=== PATIENT | female | born 1960 | race Caucasian/White ===

== ENCOUNTER 2021-04-10 09:15 | Outpatient (CLI) | payer BC, SELFPAY ==
--- NOTE | 2021-04-10 09:32 | XR_ITS ---
WS: [id number] SCREENING DEXA SCAN [place] CLINICAL INFORMATION: POST MENOPAUSAL COMPARISON: None. FINDINGS: The L1-L4 bone mineral density measures 1.126 g/cm2. This corresponds to a T score score of -0.4 and Z score of 0.2. Left femoral neck bone mineral density measures 0.917 g/cm2. This corresponds to a T score of -0.7 an d Z score of -0.2. Right femoral neck bone mineral density measures 0.982 g/cm2. This corresponds to a T score -0.2of an d Z score of 0.3. Mean femoral neck bone mineral density measures 0.950 g/cm2. This corresponds to a T score of -0.5 an d Z score of 0.1. XR/XR DEXA axial skeleton* 07000 IMPRESSION: Normal bone mineralization. Patient's FRAX calculated 10 year probability for major osteoporotic fracture i s 14.2 % and osteoporotic hip fracture is 1.5%.
== END 2021-04-10 09:16 | disposition home or self-care (01) ==
LOC: RAD 09:21
PROVIDERS: PCP Internal Medicine; Visit Provider Internal Medicine
DX: Z78.0 Asymptomatic menopausal state (principal)
CPT/HCPCS: 77080

== ENCOUNTER 2023-02-27 09:39 | Outpatient (CLI) | payer BC, SELFPAY ==
--- NOTE | 2023-02-27 09:43 | MM_ITS ---
WS: [id number] BILATERAL 3D TOMOSYNTHESIS DIGITAL DIAGNOSTIC MAMMOGRAPHY WITH CAD CLINICAL INFORMATION: BR LUMP HISTORY: LEFT breast mass COMPARISON: 2014 TECHNIQUE: Bilateral CC, MLO, and ML views. FINDINGS: Scattered fibroglandular densities bilaterally. Deep to the palpable marker LEFT breast is a lobulate d spiculated breast lesion with innumerable tiny pleomorphic calcifications. Irregular spiculated LEF T breast mass measures approximately 5.1 x 4.5 cm. In addition numerous partially visualized enlarged LEFT axillary lymph nodes also with pleomorphic calcifications. Findings highly suspicious for neopl asm. Ultrasound LEFT breast and axilla is pending. RIGHT breast is unremarkable. Vascular calcification. ULTRASOUND BREAST LEFT TECHNIQUE: Ultrasound left breast focused area of concern. CLINICAL INFORMATION: BR LUMP COMPARISON: None. FINDINGS: Ultrasound LEFT breast area of interest and LEFT axilla. Ultrasound LEFT breast at the 2 o'clock position 2 cm from the nipple. In the area of interest, there is a 3.0 x 2.1 x 2.1 cm irregular hypoechoic taller than wide mass suspicious for neoplasm. Irregula r lobulated borders suspicious for locally infiltrative disease. Ultrasound LEFT axilla demonstrates pathologically enlarged lobulated lymph node with associated pleo morphic calcifications measuring 3.9 x 2.2 cm with additional adjacent smaller pathologic lymph node. Recommend further evaluation ultrasound-guided biopsy of the LEFT breast mass and LEFT axilla. IMPRESSION: MM/[place] [id number] BI-RADS: 5-Highly Suggestive of Malignancy FOLLOW UP: US Guided Biopsy Recommended Recommend ultrasound-guided biopsy of the LEFT breast mass and LEFT axillary Ly mphadenopathy.
--- NOTE | 2023-02-27 09:48 | US_ITS ---
WS: [id number] BILATERAL 3D TOMOSYNTHESIS DIGITAL DIAGNOSTIC MAMMOGRAPHY WITH CAD CLINICAL INFORMATION: BR LUMP HISTORY: LEFT breast mass COMPARISON: 2014 TECHNIQUE: Bilateral CC, MLO, and ML views. FINDINGS: Scattered fibroglandular densities bilaterally. Deep to the palpable marker LEFT breast is a lobulate d spiculated breast lesion with innumerable tiny pleomorphic calcifications. Irregular spiculated LEF T breast mass measures approximately 5.1 x 4.5 cm. In addition numerous partially visualized enlarged LEFT axillary lymph nodes also with pleomorphic calcifications. Findings highly suspicious for neopl asm. Ultrasound LEFT breast and axilla is pending. RIGHT breast is unremarkable. Vascular calcification. ULTRASOUND BREAST LEFT TECHNIQUE: Ultrasound left breast focused area of concern. CLINICAL INFORMATION: BR LUMP COMPARISON: None. FINDINGS: Ultrasound LEFT breast area of interest and LEFT axilla. Ultrasound LEFT breast at the 2 o'clock position 2 cm from the nipple. In the area of interest, there is a 3.0 x 2.1 x 2.1 cm irregular hypoechoic taller than wide mass suspicious for neoplasm. Irregula r lobulated borders suspicious for locally infiltrative disease. Ultrasound LEFT axilla demonstrates pathologically enlarged lobulated lymph node with associated pleo morphic calcifications measuring 3.9 x 2.2 cm with additional adjacent smaller pathologic lymph node. Recommend further evaluation ultrasound-guided biopsy of the LEFT breast mass and LEFT axilla. IMPRESSION: US/US breast LT limited* [id number] BI-RADS: 5-Highly Suggestive of Malignancy FOLLOW UP: US Guided Biopsy Recommended Recommend ultrasound-guided biopsy of the LEFT breast mass and LEFT axillary Ly mphadenopathy.
== END 2023-02-27 09:40 | disposition home or self-care (01) ==
LOC: RAD 09:40
PROVIDERS: PCP Internal Medicine; Visit Provider Internal Medicine
DX: N63.0 Unspecified lump in unspecified breast (principal)
CPT/HCPCS: 76642; 77062; G0279

== ENCOUNTER 2023-03-19 11:47 | Outpatient (CLI) | payer BC, SELFPAY ==
--- NOTE | 2023-03-19 | US_ITS ---
WS: [id number] ULTRASOUND-GUIDED LEFT BREAST BIOPSY Ultrasound-guided LEFT AXILLARY LYMPH NODE HISTORY: LEFT breast mass and abnormal LEFT axillary adenopathy. COMPARISON: 02/27/2023 Procedure, risks and complications are explained to the patient. Medications are reviewed. Consent is obtained. The mass in the LEFT breast is localized with ultrasound. There is a large mass with posterior shadow ing at 2:00 within the LEFT breast for which biopsy is targeted. Skin is cleansed with ChloraPrep and anesthetized with 1% buffered lidocaine. Small dermatome is made. Under sterile conditions mass is b iopsied with a 14-gauge Achieve needle. Multiple core biopsies are performed. Material placed in form suni and sent to pathology for review. No complications encountered. Breast tissue marker (LiquidM ultrasound enhanced ribbon): No clip was LEFT at the request of the patien t. Abnormal LEFT axillary lymph node is identified. This is a very large abnormal lymph node. Skin is cl eansed with ChloraPrep and anesthetized with buffered lidocaine. A small dermatotomy was made. Multip le biopsies are performed of the abnormal lymph node with an 18-gauge achieve needle. No complication s. Specimen is placed in saline. No clip was LEFT in this lymph node at the request of the patient. Patient left the radiology suite with no complications. Patient is [place] [facility] [place] [facility] with any concerns. IMPRESSION: 1. Uncomplicated core needle biopsy LEFT breast mass at 2:00. US/US bx lymph breast/ax [id number] PATHOLOGY: Invasive mammary carcinoma with ductal and lobular features. Additio nal precursor lesion has been described by the pathologist. Please see entire p athology report for further details. Breast prognostic profile is pending. RECOMMENDATION: Follow-up with breast surgeon and oncology. 2. Uncomplicated core needle biopsy abnormal LEFT axillary lymph node. PATHOLOGY: Metastatic mammary carcinoma. Breast prognostic profile is pending. RECOMMENDATION: Follow-up with breast surgeon and oncology.
--- NOTE | 2023-03-19 11:53 | US_ITS ---
WS: [id number] ULTRASOUND-GUIDED LEFT BREAST BIOPSY Ultrasound-guided LEFT AXILLARY LYMPH NODE HISTORY: LEFT breast mass and abnormal LEFT axillary adenopathy. COMPARISON: 02/27/2023 Procedure, risks and complications are explained to the patient. Medications are reviewed. Consent is obtained. The mass in the LEFT breast is localized with ultrasound. There is a large mass with posterior shadow ing at 2:00 within the LEFT breast for which biopsy is targeted. Skin is cleansed with ChloraPrep and anesthetized with 1% buffered lidocaine. Small dermatome is made. Under sterile conditions mass is b iopsied with a 14-gauge Achieve needle. Multiple core biopsies are performed. Material placed in form suni and sent to pathology for review. No complications encountered. Breast tissue marker (Zoomaal ultrasound enhanced ribbon): No clip was LEFT at the request of the patien t. Abnormal LEFT axillary lymph node is identified. This is a very large abnormal lymph node. Skin is cl eansed with ChloraPrep and anesthetized with buffered lidocaine. A small dermatotomy was made. Multip le biopsies are performed of the abnormal lymph node with an 18-gauge achieve needle. No complication s. Specimen is placed in saline. No clip was LEFT in this lymph node at the request of the patient. Patient left the radiology suite with no complications. [place] is [place] [facility] [place] [facility] with any concerns. IMPRESSION: 1. Uncomplicated core needle biopsy LEFT breast mass at 2:00. US/[place] [id number] PATHOLOGY: Invasive mammary carcinoma with ductal and lobular features. Additio nal precursor lesion has been described by the pathologist. Please see entire p athology report for further details. Breast prognostic profile is pending. RECOMMENDATION: Follow-up with breast surgeon and oncology. 2. Uncomplicated core needle biopsy abnormal LEFT axillary lymph node. PATHOLOGY: Metastatic mammary carcinoma. Breast prognostic profile is pending. RECOMMENDATION: Follow-up with breast surgeon and oncology.
[2023-03-20 12:56] LABS: Lymphoma Profile (BBPL) See Report
[2023-03-25 09:42] LABS: Breast Profile ER,PR,HER2,Ki-6 See Report
== END 2023-03-19 11:48 | disposition home or self-care (01) ==
LOC: RAD 11:48
PROVIDERS: PCP Internal Medicine; Visit Provider Internal Medicine
DX: C50.412 Malignant neoplasm of upper-outer quadrant of left female breast (principal); C77.3 Secondary and unspecified malignant neoplasm of axilla and upper limb lymph nodes; R92.8 Other abnormal and inconclusive findings on diagnostic imaging of breast
CPT/HCPCS: 19083; 38505; 76942; 88184; 88185; 88305; 88361; 88374